=== PATIENT | female | born 1990 | race Caucasian/White ===

== ENCOUNTER 2017-12-27 17:21 | Emergency (ER) | payer OTHER ==
[~2017-12-27] VITALS: Ht 162.6 cm; Wt 61.2 kg
[~2017-12-27 17:21] MED LIST: ACETAMINOPHEN325 M1 PO; FLEXERIL PO; IBUPROFEN 200200 M1 PO; IBUPROFEN 600600 M1 PO; IBUPROFEN 800800 MG PO; NORCO 5-325 TA1 EACH PO; NORFLEX100 MG PO; ULTRAM 50MG TAB50 MG PO; VALIUM5 MG PO; ZOFRAN ODT4 MG PO
[2017-12-27 17:30] VITALS: BP 142/92
[2017-12-27] MEDS ORDERED: ERYTHROMYCIN E3.5 G3 OPHTHALMIC (17:57)
== END 2017-12-27 18:00 | disposition home or self-care (01) ==
LOC: ER 17:21
DX: H10.33 Unspecified acute conjunctivitis, bilateral (principal)

== ENCOUNTER 2018-05-11 11:48 | Emergency (ER) | payer OTHER ==
[~2018-05-11] VITALS: Ht 165.1 cm; Wt 54.4 kg
[~2018-05-11 11:48] MED LIST changes: +ERYTHROMYCIN E3.5 G3 OPHTHALMIC
[2018-05-11 12:52] LABS: ABSOLUTE NEUTROPHILS 11.8 thou/uL (1.4-8.2); BASOPHILS 0.3 % (0.0-2.0); EOSINOPHILS 0.3 % (0.0-3.0); HEMOGLOBIN 13.2 gm/dL (12.0-15.0); LYMPHOCYTES 10.8 % (24.0-44.0); MCH 30.7 pg (26.0-34.0); MCHC 33.8 g/dL (28.0-37.0); MCV 90.7 fL (80.0-100.0); MONOCYTES 3.3 % (1.0-8.0); PLATELET COUNT 296 thou/uL (150-400); POLYS 85.3 % (36.0-66.0); RDW 15.1 % (10.5-14.5); WBC 13.9 thou/uL (4.0-11.0)
[2018-05-11 12:59] LABS: CALCIUM 9.2 mg/dL (8.5-10.1); CREATININE 0.9 mg/dL (0.6-1.0); POTASSIUM 3.5 mmol/L (3.5-5.1)
[2018-05-11 13:05] LABS: TOTAL BILIRUBIN 0.4 mg/dL (<0.1-1.0); TOTAL PROTEIN 7.8 g/dL (6.4-8.2)
[2018-05-11] MEDS ORDERED: PHENERGAN 25 MG25 M1 PO (13:15)
[2018-05-11] MEDS ORDERED: ONDANSETRON HCL4 M2 PO ×2 (13:15→16:12)
[2018-05-11 14:03] LABS: URINE CLARITY CLEAR; URINE COLOR YELLOW
[2018-05-11 14:05] LABS: ICTOTEST (BILI CONFIRMATORY) Negative (Negative); URINE BILIRUBIN NEGATIVE (Negative); URINE BLOOD NEGATIVE (Negative); URINE GLUCOSE-RANDOM* NEGATIVE (Negative); URINE KETONES 1+ (Negative); URINE NITRITE-REFLEX NEGATIVE (Negative); URINE PROTEIN (DIPSTICK) NEGATIVE (Negative); URINE UROBILINOGEN 0.2 E.U./dl (0.2-1.0)
[2018-05-11 14:06] LABS: URINE LEUKOCYTES-REFLEX NEGATIVE (Negative)
[2018-05-11] MEDS ORDERED: CARAFATE 1 GM TA1 G1 PO (16:12)
[2018-05-11] MEDS ORDERED: OMEPRAZOLE 20 M20 M1 PO (16:12)
[2018-05-11] MEDS ORDERED: NORCO 5-325 TA1 EACH PO (16:12)
[2018-05-11 16:59] VITALS: BP 132/83
== END 2018-05-11 17:00 | disposition home or self-care (01) ==
LOC: ER 11:48
PROVIDERS: Physician Assistant
DX: O99.611 Diseases of the digestive system complicating pregnancy, first trimester (principal); O21.9 Vomiting of pregnancy, unspecified; K29.00 Acute gastritis without bleeding; Z3A.00 Weeks of gestation of pregnancy not specified

== ENCOUNTER 2019-02-28 23:34 | Inpatient (IN) | payer OTHER ==
[~2019-02-28] VITALS: Ht 165.1 cm; Wt 55.3 kg
[~2019-02-28 23:34] MED LIST changes: +CARAFATE 1 GM TA1 G1 PO; +OMEPRAZOLE 20 M20 M1 PO; +ONDANSETRON HCL4 M2 PO; +PHENERGAN 25 MG25 M1 PO
[2019-02-28 23:36] VITALS: BP 111/69
[2019-03-01 00:09] LABS: ABSOLUTE NEUTROPHILS 9.2 thou/uL (1.4-8.2); BASOPHILS 0.5 % (0.0-2.0); EOSINOPHILS 0.1 % (0.0-3.0); HEMATOCRIT 41.6 % (37.0-47.0); HEMOGLOBIN 13.7 gm/dL (12.0-15.0); LYMPHOCYTES 18.4 % (24.0-44.0); MCH 30.4 pg (26.0-34.0); MCV 92.2 fL (80.0-100.0); MONOCYTES 5.1 % (1.0-8.0); PLATELET COUNT 335 thou/uL (150-400); POLYS 75.9 % (36.0-66.0); RBC 4.51 mil/uL (4.20-5.00); WBC 12.1 thou/uL (4.0-11.0)
[2019-03-01 00:13] LABS: ANION GAP 15 mmol/L (7-16); BUN 14 mg/dL (7-18); CALCIUM 9.7 mg/dL (8.5-10.1); CHLORIDE 106 mmol/L (98-107); CO2 22 mmol/L (21-32); CREATININE 0.8 mg/dL (0.6-1.0); GLUCOSE 125 mg/dL (74-106); POTASSIUM 3.5 mmol/L (3.5-5.1); SODIUM 143 mmol/L (136-145)
[2019-03-01 00:19] LABS: ALBUMIN 4.3 g/dL (3.4-5.0); DIRECT BILIRUBIN < 0.1 mg/dL (<0.1-0.3); LIPASE 89 U/L (73-393); SGOT 19 U/L (15-37); SGPT 22 U/L (30-65); TOTAL BILIRUBIN 0.4 mg/dL (<0.1-1.0); TOTAL PROTEIN 8.7 g/dL (6.4-8.2)
[2019-03-01 00:29] LABS: URINE BILIRUBIN 1+ (Negative); URINE BLOOD NEGATIVE (Negative); URINE CLARITY TURBID; URINE COLOR YELLOW; URINE GLUCOSE-RANDOM* NEGATIVE (Negative); URINE KETONES 1+ (Negative); URINE LEUKOCYTES-REFLEX NEGATIVE (Negative); URINE NITRITE-REFLEX NEGATIVE (Negative); URINE PROTEIN (DIPSTICK) TRACE (Negative); URINE SPECIFIC GRAVITY 1.025 (1.005-1.035); URINE UROBILINOGEN 0.2 E.U./dl (0.2-1.0)
[2019-03-01 00:31] LABS: ICTOTEST (BILI CONFIRMATORY) Positive (Negative)
[2019-03-01 04:07] VITALS: BP 126/75
[2019-03-01 04:28] VITALS: BP 121/60
--- NOTE | 2019-03-01 04:45 | NUR ---
New pt from the ed admitted with abd pain and nausea. pt is s&ox4. ambulates with standby assist. admission assessments completed. pt stated that she was given compazine in the ed and its making her twitch. [facility] carol came in and saw patient and orders were administered. pt took a warm shower, stated the shower made her feel relaxed and better. ivf infusing @ 100ml/hr on R AC
[2019-03-01 07:13] LABS: HEMATOCRIT 40.8 % (37.0-47.0); HEMOGLOBIN 13.3 gm/dL (12.0-15.0)
[2019-03-01 09:14] VITALS: BP 120/68
--- NOTE | 2019-03-01 14:38 | NUR ---
PT ADMITTED RELATED TO ABD PAIN AND VOMITING. CM REVIEWED CHART AND SPOKE WITH CARE TEAM. CM MET WITH PT AT BEDSIDE THIS DAY. PT IS A&O X4. CM ROLE INTRODUCED. PT INDICATED SHE LIVES IN A [place] WITH HER MOM AND CHILDREN. PT INDICATED THERE ARE 3 STEPS TO ENTER AND 13 STEPS INSIDE. 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 PT INDICATED THAT SHE SHE IS CURRENTLY PATIENT PAY BUT THAT SHE'S WORKING TO GET HER MEDICAID ACTIVE. PT DECLINED HUMANARC VISIT. PT INDICATED SHE ANTICPATES RETURNING HOME ONCE MEDICALLY STABLE. CM TO FOLLOW INDICATED WITH DC PLANNING.
[2019-03-01 14:45] VITALS: BP 121/76
[2019-03-01 18:21] LABS: ALBUMIN 4.4 g/dL (3.4-5.0); CALCIUM 9.2 mg/dL (8.5-10.1); POTASSIUM 3.8 mmol/L (3.5-5.1); TOTAL BILIRUBIN 0.2 mg/dL (<0.1-1.0); TOTAL PROTEIN 8.4 g/dL (6.4-8.2)
--- NOTE | 2019-03-01 18:39 | NUR ---
PT A&OX4, VSS, PAIN IN ABDOMEN. PATIENT NAUSEA THROUGHOUT DAY, VOMITED TWICE. VOMIT YELLOW/GREEN COLOR. PATIENT LOW GRADE FEVER. TYLENOL GIVEN FOR PAIN. UA COLLECTED. PATIENT DOWN FOR EGD AND CT TODAY. NO SIGNS OF DISTRESS. PATIENT EATING AND DRINKING MORE. WILL CONTINUE TO MONITOR.
[2019-03-01 19:07] VITALS: BP 122/62
[2019-03-01 21:03] LABS: ABSOLUTE NEUTROPHILS 11.4 thou/uL (1.4-8.2); BASOPHILS 0.3 % (0.0-2.0); EOSINOPHILS 0.1 % (0.0-3.0); HEMATOCRIT 36.5 % (37.0-47.0); HEMOGLOBIN 11.9 gm/dL (12.0-15.0); LYMPHOCYTES 5.8 % (24.0-44.0); MCH 30.2 pg (26.0-34.0); MCHC 32.6 g/dL (28.0-37.0); MCV 92.8 fL (80.0-100.0); MONOCYTES 6.4 % (1.0-8.0); POLYS 87.4 % (36.0-66.0); RBC 3.93 mil/uL (4.20-5.00); RDW 13.1 % (10.5-14.5); WBC 13.1 thou/uL (4.0-11.0)
[2019-03-01 21:04] LABS: PLATELET COUNT 256 thou/uL (150-400)
--- NOTE | 2019-03-02 05:30 | NUR ---
PT IS UP AD NICHOLE .PT COMPLAIN OF NAUSEA AND MANAGED WITH ZOFRAN.NO VOMITING DURING SHIFT.PT WAS NPO FROM MIDNIGHT AND IS TO DO UNTRASOUND TODAY.PAIN MANAGED WITH DILAUDID.CONTINUE TO MONITOR.
[2019-03-02 07:43] VITALS: BP 106/61
--- NOTE | 2019-03-02 08:07 | EKG ---
[address] [address] ELECTROCARDIOGRAM REPORT Name: TABATHA CHAIREZ Room #: 450-P ADM IN M.R.#: [id number] Admission: 03/01/19 Attend Phys: Randi Jurado MD Discharge: Date of : 89 Report #: [id number] THIS REPORT FOR: //name// [facility] Test Date: 2019-03-01 Test Time: 16:11:40 Pat Name: TABATHA CHAIREZ Department: Room: 450 P Gender: F Sales Service Rep: Florian RUBIO : 1990 Requested By: Randi Jurado Order Number: [id number] MD: Jose De Jesus Castillo Measurements Intervals Richards Rate: 57 P: 64 AR: 132 QRS: 38 QRSD: 124 T: 53 QT: 422 QTc: 411 Interpretive Statements Sinus arrhythmia Nonspecific intraventricular conduction delay Compared to ECG 06/09/2008 01:02:30 Intraventricular conduction delay now present Sinus rhythm no longer present Electronically Signed On 03-02-2019 8:06:45 CDT by Jose De Jesus Castillo [email or web address] <ELECTRONICALLY SIGNED> By: Jose De Jesus Castillo MD 03/02/19 0806 10 10 Jose De Jesus Castillo MD /DENY
[2019-03-02 08:29] LABS: AMP/METHAMP Negative (Negative); BARBITURATES Negative (Negative); BENZODIAZEPINES Negative (Negative); COCAINE Negative (Negative); METHADONE Negative (Negative); OPIATES POSITIVE (Negative); PCP Negative (Negative)
[2019-03-02] MEDS ORDERED: ACETAMINOP500 MG/15 PO (13:28)
[2019-03-02 14:23] VITALS: BP 106/61
--- NOTE | 2019-03-02 17:06 | PATH ---
[facility] [place] [address] PATHOLOGY RPT PROCEDURE Name: TABATHA CHAIREZ Room #: 450-P ADM IN M.R.#: [id number] Admission: 03/01/19 Date of : 89 Discharge: Report #: [id number] Path Case #: [id number] [facility] Accession Number: [id number] . 01 Material submitted: . PART A: duodenum - BX OF DUODENUM PART B: stomach - BX OF ANTRUM . 01 Clinical history: . Hiatal hernia, gastritis . 02 Diagnosis: A. Small bowel mucosa, duodenum to rule out celiac disease, endoscopic biopsy: - Minute small bowel mucosal fragment showing mild acute nonspecific duodenitis. - No definitive villous blunting or increase in intraepithelial lymphocytes identified. . B. Gastric mucosa, antrum R/O H. pylori, endoscopic biopsy: - Moderate reactive gastropathy. - Negative for intestinal metaplasia or atrophy. - Negative for Helicobacter pylori (properly controlled immunohistochemical stain performed). . (IUV:chuck; 03/02/2019) . QMS 03/02/2019 1333 Local . 02 Electronically signed: . Liz Bear MD, Pathologist NPI- [id number] . 01 Gross description: . A. Received in formalin labeled "Elmo Tabatha, BX of duodenum," and additionally labeled on the requisition as "to rule out celiac," is a single segment of newell soft tissue measuring 0.4 cm in maximum dimension. The specimen is entirely submitted in cassette A1. . B. Received in formalin labeled "Junior Chaireza, BX of antrum," and additionally labeled on the requisition as "to rule out H. pylori," is a single segment of newell soft tissue measuring 0.4 cm in maximum dimension. The specimen is submitted entirely in cassette B1. (TSD; 03/01/2019) TOB/TOB 03/01/2019 1753 Local . 02 Pathologist provided ICD-10: [address] [address] PATHOLOGY RPT PROCEDURE Name: TABATHA CHAIREZ Room #: 450-P [facility] IN M.R.#: [id number] Admission: 03/01/19 Date of : 89 Discharge: Report #: [id number] Path Case #: [id number] K29.80, K31.9 . 02 CPT . 220911, [id number], [id number] Specimen Comment: A courtesy copy of this report has been sent to [phone] Specimen Comment: [phone] Specimen Comment: Report sent to / DR MEAD Performed at: [address], [place], [place] [id number] MD Dave Ortiz MD Phone: [phone] Performed at: [address] [id number] MD Liz Bear MD Phone: [phone]
--- NOTE | 2019-03-02 20:08 | NUR ---
PT DISCHARGED HOME. ALL BELOGINGS WITH PATIENT, IV REMOVED. NO VOMITING TODAY, SOME NAUSEA AND PAIN REMAINS. DISCHARGE ORDERS GIVEN WITH FOLLOW UP INSTRUCTIONS. NO SIGNS OF DISTRESS.
[2019-03-04 10:08] LABS: GLOBULIN TOTAL 3.9 g/dL (2.2-3.9); M-SPIKE Not Observed g/dL (Not Observed)
== END 2019-03-02 18:20 | disposition home or self-care (01) | DRG 392 ==
LOC: ER 23:34 → EROBS 03-01 03:55 → 4W 03-01 03:55
PROVIDERS: Emergency Medicine; Nurse Practitioner Acute Care; ADMIT Internal Medicine
DX: K20.9 Esophagitis, unspecified (principal); F17.210 Nicotine dependence, cigarettes, uncomplicated; R79.89 Other specified abnormal findings of blood chemistry; K44.9 Diaphragmatic hernia without obstruction or gangrene; K29.70 Gastritis, unspecified, without bleeding; K31.84 Gastroparesis; Z79.899 Other long term (current) drug therapy; Z71.6 Tobacco abuse counseling; Z80.0 Family history of malignant neoplasm of digestive organs; Z87.11 Personal history of peptic ulcer disease
CPT/HCPCS: 10040; 62110; 62900; 70005